=== PATIENT | male | born 1935 | race Caucasian/White ===

== ENCOUNTER → 2017-02-02 | Outpatient (CLI) | payer MEDICARE, BC ==
[~2017-02-02] MED LIST: AMIODARONE HCL100 MG PO; AMLODIPINE BESY10 MG PO; AMLODIPINE BESYL5 MG PO; ASPIRIN EC81 M1 PO; BAYER CHEWABLE81 MG PO; COREG3.125 MG PO; COREG6.25 M1 PO; COUMADIN5 MG PO; CRESTOR10 MG PO; CYMBALTA30 MG PO; FINASTERIDE5 M1 PO; FLOMAX0.4 M1 DOB; HCTZ PO; HYDROCHLORIC A500 M1; HYDROCHLOROTH12.5 M1 PO; IMDUR; LIPITOR20 MG PO; NEURONTIN100 MG PO; NORVASC10 MG PO; OMEPRAZOLE20 M2 PO; OMEPRAZOLE40 M1 PO; OXYCODON-ACETA1 EAC1 PO; PERCOCET 10/3251 TAB PO; PERCOCET10 PO; PROSCAR5 MG PO; RAPAFLO8 MG; REQUIP2 MG DOB; REQUIP2 MG PO; VITAMIN E100 UNI3 PO; WARFARIN SODIU7.5 M1 PO; ZETIA PO
[2017-02-02 12:18] LABS: BUN/CREATININE RATIO 16.66; CREATININE SERUM 0.9 mg/dL (0.6-1.4); GLOM FILT RATE Estimated 78.7 mL/min (>60); POTASSIUM 3.5 mmol/L (3.5-5.1)
== END | disposition home or self-care (01) ==
LOC: CLAB 11:09
PROVIDERS: Surgery Vascular Surgery
DX: I71.4 Abdominal aortic aneurysm, without rupture (principal); I71.2 Thoracic aortic aneurysm, without rupture; Z98.890 Other specified postprocedural states
CPT/HCPCS: 36415; 80048

== ENCOUNTER → 2017-02-09 | Outpatient (CLI) | payer MEDICARE, BC ==
--- NOTE | ~2017-02-09 | CT15 ---
[facility] A Service of [facility] RADIOLOGY TEXT RESULTS PATIENT: ONUR MCDOWELL LOCATION: CCAT : 33 UNIT #: [id number] AGE: [address]: Mayur Srinivasan MD SEX: M ORDER DR: [id number] [facility] [address] [place], [place] [address] [id number] O MR#: [id number] Acc #: [id number] NAME: ONUR MCDOWELL : 1935 SEX: M STUDY DATE/TIME: 02/09/2017 9:52 UNIT: CCAT ROOM: STUDY DESCRIPTION: CT Angio Chest Attending Physician: Mayur Srinivasan M.D. Referring Physician: Mayur Srinivasan M.D. Ordering Physician: Mayur Srinivasan M.D. Primary Care Physician: George Abdi M.D. MEDICAL IMAGING REPORT This report is preliminary unless electronic signature is present EXAM CT angiogram chest Please see CTA abdomen and pelvis for results. Dictated by... Nicole Montes M.D. THIS IS AN ELECTRONICALLY VERIFIED REPORT Nicole Montes M.D. at 02/09/2017 5:06 PM KESHA/juliano TD: 02/09/2017 15:52 JOB #: [id number] MEDICAL IMAGING REPORT Page 1 of 1 COPY
--- NOTE | ~2017-02-09 | CT14 ---
[facility] A Service of [facility] RADIOLOGY TEXT RESULTS PATIENT: ONUR MCDOWELL LOCATION: CCAT : 33 UNIT #: [id number] AGE: [address]: Mayur Srinivasan MD SEX: M ORDER DR: [id number] [facility] [address] [place], [place] [address] [id number] O MR#: [id number] Acc #: [id number] NAME: ONUR MCDOWELL : 1935 SEX: M STUDY DATE/TIME: 02/09/2017 9:52 UNIT: CCAT ROOM: STUDY DESCRIPTION: CT Angio Abdomen and Pelvis Attending Physician: Mayur Srinivasan M.D. Referring Physician: Mayur Srinivasan M.D. Ordering Physician: Mayur Srinivasan M.D. Primary Care Physician: George Abdi M.D. MEDICAL IMAGING REPORT This report is preliminary unless electronic signature is present EXAM CTA chest abdomen pelvis with IV contrast. DATE 02/09/2017 HISTORY 81-year-old male with history of thoracic aortic aneurysm, abdominal aortic aneurysm, endovascular repair of abdominal aortic aneurysm. Patient states mid abdominal pain for 4-5 months since the surgery. Additional history of hypertension. COMPARISON CT angiography of the abdomen and pelvis 09/27/2016. CTA chest abdomen and pelvis 07/26/2016. PROCEDURE 2 mm axial images from the thoracic inlet through the upper thighs after IV contrast administration in the arterial phase. 3-D reformatted images were obtained to the dedicated workstation. Additional noncontrast imaging was obtained through the stented segment of the abdominal aorta, and 90-second delayed postcontrast imaging was obtained through the stented segment, as well. This CT exam was performed with one or more of the following radiation dose reduction techniques: automatic control, adjustment of mA and/or kV according to patient size, and iterative reconstruction. FINDINGS ARTERIAL ANATOMY: There is mild ectasia of the aortic root of the sinuses of Valsalva, little change from 3.7 cm on the previous study, measured in the coronal plane. The mid ascending thoracic aorta is mildly aneurysmal measuring up to 4.0 cm, compared to 4.1 cm previously. The proximal [facility] A Service of [facility] & [facility] RADIOLOGY TEXT RESULTS PATIENT: ONUR MCDOWELL LOCATION: CCAT : 33 UNIT #: [id number] AGE: [address]: Mayur Srinivasan MD SEX: M ORDER DR: descending thoracic aorta is aneurysmal up to 3.2 cm compared to 3.1 cm previously. There is saccular aneurysm projecting from the left lateral margin of the proximal to mid descending thoracic aorta which, when measured in a comparable leveling plane, is unchanged as is the prior study, 5.2 cm transverse by 3.4 cm AP by 3.3 cm craniocaudal, with mild eccentric mural thrombus. There is mild irregular plaquing within the posterior mid to distal descending thoracic aorta. The distal abdominal aorta above the diaphragm is tortuous. The great arteries branch in a conventional pattern from the aorta with mild atherosclerotic disease at their origins but no flow-limiting stenosis. There are signs of aortobiiliac Endostent repair of infrarenal abdominal aortic aneurysm, which also traverses bilateral common iliac artery aneurysms. The Endostent begins below the takeoff of the left renal artery, and single bilateral renal arteries are patent. SMA and celiac artery remain patent, as well. There is no evidence of in-stent thrombus. The endosac has diminished in size, currently measuring 6.5 x 6.9 cm compared to 7.0 x 6.6 cm on 09/27/2016. There is no indication of endoleak. The endosac of the right common iliac artery aneurysm is thrombosed without evidence of endoleak. The endosac has diminished in size, currently measuring 4.2 cm compared to 4.6 cm previously. The left common iliac artery endosac is stable at 2.5 cm. No evidence of in-stent thrombus. Irregular ulcerative type plaque within the left external iliac artery, and focal ulcerative plaque versus chronic dissection in the right common femoral artery are each unchanged. No high-grade or flow-limiting stenosis is seen within the continuing external iliac, common femoral arteries or imaged superficial femoral arteries. ADDITIONAL CHEST FINDINGS: Coronary artery calcifications are present. Heart size is within normal limits. Moderate esophageal hiatal hernia is redemonstrated. Emphysematous changes are present, with features of interstitial fibrosis seen predominately in the right middle and right lower lobes. No pathologic adenopathy. No pericardial effusion or pleural effusion or pneumothorax. ADDITIONAL ABDOMEN FINDINGS: The gallbladder, liver, spleen, pancreas, adrenals are within normal limits. There is mild bilateral renal cortical scarring. Low-density right renal lesions are nonspecific but favored to represent cysts. Presumed sebaceous cyst in the midline of the back near the L1-2 level measures 2.3 cm, unchanged. Unopacified bowel is grossly within normal limits. PELVIS FINDINGS: 3.5 cm dense calcification within the urinary bladder [facility] A Service of [facility] RADIOLOGY TEXT RESULTS PATIENT: ONUR MCDOWELL LOCATION: [facility] : 33 UNIT #: [id number] AGE: [address]: Mayur Srinivasan MD SEX: M ORDER DR: lumen unchanged. No active urinary bladder inflammatory change. There is prostatic gland enlargement protruding to the base of the urinary bladder. Rectum is within normal limits. There is a lower thoracic levoscoliosis and upper lumbar dextroscoliosis. 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 No acute osseous abnormalities are identified. IMPRESSION 1. Aortobiiliac endograft repair of abdominal aortic aneurysm and bilateral common iliac artery aneurysms as described above. The stent remains patent and in satisfactory position, and there is no evidence of endoleak. The abdominal aortic endosac and the right common iliac artery endosac have diminished in size while the left common artery endosac is stable. 2. Ulcerative plaque in the left external iliac artery, and ulcerative plaque versus chronic focal dissection of the right common femoral artery each appear unchanged. 3. The celiac artery and SMA remain patent. 4. Saccular aneurysm of the proximal to mid descending thoracic aorta is stable when measured in a comparable plane and fashion, maximal 5.2 x 3.7 cm in the axial plane. No thoracic aortic dissection. 5. Stable aneurysmal dilation of the ascending and descending thoracic aorta as described in the report. Stable ectasia of the aortic root. 6. Emphysema with asymmetric interstitial fibrotic changes in the right middle and right lower lobes. 7. Moderate esophageal hiatal hernia. 8. 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 Dictated by... Nicole Montes M.D. THIS IS AN ELECTRONICALLY VERIFIED REPORT Nicole Montes M.D. at 02/09/2017 5:07 PM KESHA/juliano TD: 02/09/2017 15:59 JOB #: [id number] MEDICAL IMAGING REPORT Page 1 of 1 COPY
== END | disposition home or self-care (01) ==
LOC: CCAT 09:01
DX: I71.4 Abdominal aortic aneurysm, without rupture (principal); I71.2 Thoracic aortic aneurysm, without rupture; I72.3 Aneurysm of iliac artery; I70.8 Atherosclerosis of other arteries; I77.819 Aortic ectasia, unspecified site; J43.9 Emphysema, unspecified; K44.9 Diaphragmatic hernia without obstruction or gangrene; M43.16 Spondylolisthesis, lumbar region; M47.816 Spondylosis without myelopathy or radiculopathy, lumbar region
CPT/HCPCS: 71275; 74174; Q9967

== ENCOUNTER 2017-05-14 16:37 | Observation (INO) | payer MEDICARE, BC ==
[~2017-05-14] VITALS: Ht 172.7 cm; Wt 86.2 kg
--- NOTE | ~2017-05-14 | HP ---
Unit #: [id number] #: [id number] Patient: ONUR HERNANDEZ [id number] [facility] [address] [place], [place] [address] [id number] I MR#: [id number] NAME: ONUR HERNANDEZ ROOM: 554 Age: 81 Sex: M Admission Date: 05/15/2017 : 1935 Attending Physician: Drake Lilly M.D. Primary Care Physician: George Abdi M.D. HISTORY AND PHYSICAL HISTORY OF PRESENT ILLNESS This is an 81-year-old white male who is known to Dr. Lilly who has a history of paroxysmal atrial fibrillation, coronary artery disease. His last cath was last July. He does have an RCA that is occluded but has filling with collaterals. Also, a second marginal branch of the circumflex is occluded, also with collaterals. He, again, has history of paroxysmal atrial fibrillation. He has been on Coumadin. He has history of abdominal aortic repairs in the past, and he does currently have a 5.2 cm thoracic aortic aneurysm, and he is being followed by Dr. Srinivsaan. He also has history of hypertension, hyperlipidemia, EF of 55%. The patient came in for some left anterior chest pain. According to the patient, he last saw Dr. Lilly this past February. He was doing fairly well. He says he is arranging things to have his aneurysm repaired. They are talking about an endovascular repair. He said he has been compliant with his medication, but sometimes he forgets to take his Coumadin. He said he may have forgotten to take it the last couple days. His INR is 1.1. The patient says he had not been having any chest pain, and he got up yesterday morning and was feeling fine. He said, then later, he was sitting at the kitchen table drinking some coffee and he had some pain under his left axillary region. He denies any radiation of the pain up into his neck, bilateral jaws, shoulders, arms or elbows. He said it was more like a stabbing, pushing pressure. He may have had a little shortness of breath at the time. He said it was waxing and waning. He denies any diaphoresis. No dizziness. No nausea, vomiting or diarrhea. No abdominal pain. He denies any recent illness. No recent cough, fever or chills. He was concerned, with knowing his history of coronary artery disease. He came to the emergency room for further evaluation. He did have Nitrostat, but he said he did not take any. In the emergency room the patient's blood pressure was 139/78, heart rate 63, respirations 16, temperature 97.9, O2 sats 97% on room air. His initial cardiac enzymes were negative. EKG shows normal sinus rhythm, some T wave inversion in the inferior leads; otherwise, unremarkable. The patient was given aspirin 325. He will be admitted for further evaluation and management. PAST MEDICAL HISTORY 1. Cardiac cath 07/2016 revealed RCA was occluded in the mid segment with distal vessel filled with collaterals; left main normal; LAD 60% to 70% mid stenosis; circumflex - the trunk was normal with the second marginal branch occluded at the origin with distal vessel filled by collaterals. Unit #: [id number] #: [id number] Patient: ONUR HERNANDEZ 2. In 07/2016, two-D echo: LVEF 55%; mild aortic regurgitation. 3. History of abdominal aortic aneurysm repairs. He currently has a 5.2 cm thoracic aortic aneurysm, and he is following with Dr. Srinivasan. 4. History of paroxysmal atrial fibrillation. Has been on Coumadin. 5. Hypertension. 6. Hyperlipidemia. 7. History of carotid bruits. 8. Gastroesophageal reflux disease. 9. Osteoarthritis. 10. Reformed smoker. PAST SURGICAL HISTORY 1. Abdominal aortic aneurysm repair in the past, most recent was July 2016. 2. He had an EVAR 08/19/[address] Srinivasan. 3. Tonsillectomy. HOME MEDICATIONS 1. Percocet 10/325 mg 1 tablet p.o. q.8 hours p.r.n. 2. Oxycodone/acetaminophen 7.5/325 mg 1 tablet p.o. p.r.n. 3. Cymbalta 30 mg p.o. daily. 4. Coumadin 5 mg p.o. daily. 5. Amlodipine 10 mg p.o. daily. 6. Finasteride 5 mg p.o. daily. 7. Hydrochlorothiazide 12.5 mg p.o. daily. 8. Zetia 10 mg p.o. daily. 9. Crestor 20 mg p.o. daily. 10. Amiodarone 100 mg p.o. daily. 11. Omeprazole 20 mg p.o. b.i.d. 12. Flomax 0.4 mg p.o. b.i.d. 13. Requip 2 mg p.o. t.i.d. ALLERGIES No known drug allergies. SOCIAL HISTORY The patient lives with his daughter. He says he does some chores around the home. He rides a lawnmower outside for yard work. He quit smoking about 10 years ago. No alcohol or illicit drug abuse. FAMILY HISTORY His mother had a heart attack at the age of 73. His father from COPD. He has an older brother who has had a CABG. REVIEW OF SYSTEMS CONSTITUTIONAL: Denies fevers or chills. No recent weight gain, weight loss. HEENT: Denies headache or dizziness. No visual or hearing changes. No lymphadenopathy, thyromegaly. No difficulty swallowing. CARDIOVASCULAR: Chest pain present. Denies palpitations. Denies increased lower extremity edema. PULMONARY: Some slight shortness of breath with the chest pain; otherwise, none. Denies paroxysmal nocturnal dyspnea or orthopnea. GI: Denies nausea, vomiting, diarrhea or abdominal pain. NEUROLOGIC: No focal weakness. PHYSICAL EXAMINATION GENERAL: On exam, Mr. Hernandez is an 81-year-old white male in no acute Unit #: [id number] #: [id number] Patient: ONUR HERNANDEZ respiratory distress. He is awake, alert and oriented. VITAL SIGNS: Blood pressure is 125/80, respirations 18, heart rate 66, temperature 98.8, O2 sats 93% on room air. NECK: Trachea midline. No thyromegaly or lymphadenopathy. Normal carotid upstrokes. No jugular venous distention. HEART: S1, S2, regular rate and rhythm. No clicks, murmurs, or rubs. LUNGS: Slightly diminished; otherwise, clear. ABDOMEN: Obese, soft, nontender. EXTREMITIES: Pedal pulses are palpable. No pedal edema. DIAGNOSTIC STUDIES LABORATORY DIAGNOSTIC DATA: Glucose is 111, BUN 16, creatinine 0.8, eGFR 82.6, sodium 139, potassium 3.8, chloride 102, CO2 30, calcium 9.1, total protein 8, albumin 4.4, bili total 0.9, AST 19, ALT 14, alkaline phosphatase 71. WBC is 7.3, hemoglobin 12.7, hematocrit 38, platelets 162. Initial cardiac enzymes - CK-MB 3.4, troponin less than 0.05; CK-MB less than 1, troponin less than 0.05. ProTime is 11.4, INR 1.1. IMAGING: Chest x-ray shows a small amount of left bibasilar atelectasis, mild cardiomegaly and aortic atherosclerotic changes. No dense consolidation. Mild diffuse prominence may reflect chronic interstitial disease. CT of the chest with PE protocol shows nothing acute. No evidence of PE. Diffuse lung disease with mild emphysema and basilar fibrosis and small to moderate sized hiatal hernia and degenerative disk disease in the thoracic spine. CARDIOVASCULAR: EKG shows normal sinus rhythm with a first-degree AV block, left axis deviation, T wave inversion in lead III only, slow R wave progression. IMPRESSION 1. Chest pain. History of coronary artery disease. See details in HPI on the last cath 07/2016. 2. Thoracic aortic aneurysm, 5.[address] Srinivasan with history of abdominal aortic aneurysm repair in the past. 3. Paroxysmal atrial fibrillation, is on Coumadin. Subtherapeutic INR. 4. Hypertension. 5. Hyperlipidemia. 6. Gastroesophageal reflux disease. 7. Osteoarthritis. 8. Left ventricular ejection fraction of 55% with mild aortic regurgitation on two-D echocardiogram 07/2016. 9. Reformed smoker. PLAN Continue to monitor cardiac enzymes and EKGs. So far are negative. His EKG does not show anything acute. The patient's symptoms are somewhat atypical; however, with his coronary artery disease and other co-morbidities, will continue to monitor. If they remain negative, will treat with maximum medical management. Will start the patient on Imdur 30 mg p.o. daily, sustained-release nitrate. Will continue on his carvedilol and aspirin, amlodipine and Crestor and Zetia. The patient is also on amiodarone, besides beta-glory, to maintain normal sinus rhythm. Obtain a fasting lipid profile and evaluate. On exam, there are no signs or symptoms of acute congestive heart failure. We will get fasting lipid profile and TSH and evaluate. Further recommendations pending per Unit #: [id number] #: [id number] Patient: ONUR HERNANDEZ. If the cardiac enzymes remain negative, the patient would rather hold off on any further cardiac workup. He does not really want a heart catheterization at all at this time, and he said he would consider a stress test. Will make further recommendations before discharge, and/or he can have a stress test later on as an outpatient. The patient is subtherapeutic on his INR. Will give him an additional dose of his Coumadin 5 mg. Will give 10 mg dose today and then discharge home on his previous dose with a ProTime and INR with Dr. Lilly in about a week. While the patient is in the hospital, will have the resident caregiver to evaluate the cost of the newer anticoagulants per the patient's request and will make a final decision on his anticoagulation before discharge. Encourage the patient compliancy with his medications, especially his anticoagulation. Dictated by Yanelis Ramey A.P.R.N. for Clay Jason/herman TD: 05/15/2017 15:29 JOB #: [id number] HISTORY AND PHYSICAL Page 1 of 1 X Yanelis Ramey APRN HISTORY AND PHYSICAL
--- NOTE | ~2017-05-14 | EKG ---
PATIENT: ONUR MCDOWELL UNIT #: [id number] Ventricular Rate: 67 BPM Atrial Rate: 67 BPM P-R Interval: 234 ms QRS Duration: 80 ms Q-T Interval: 426 ms QTC Calculation(Bezet): 450 ms P [place]: 63 degrees Calculated R [place]: -45 degrees Calculated T [place]: 13 degrees Diagnosis Line: Sinus rhythm with 1st degree A-V block Diagnosis Line: Left axis deviation Diagnosis Line: Inferior infarct (cited on or before 08-AUG-2016) Diagnosis Line: Abnormal ECG Diagnosis Line: When compared with ECG of 08-AUG-2016 10:28, Diagnosis Line: Premature atrial complexes are no longer Present Diagnosis Line: Confirmed by SMOOTH FRIEND MD ([id number]) on Diagnosis Line: 05/14/2017 11:17:56 PM INTERPRETING MD: RONNA WILSON
--- NOTE | ~2017-05-14 | CT16 ---
[facility] A Service of [facility] RADIOLOGY TEXT RESULTS PATIENT: ONUR MCDOWELL LOCATION: [facility] 554 : 33 UNIT #: [id number] AGE: [address]: Drake Lilly MD SEX: M ORDER DR: [id number] [facility] [address] [place], [place] [address] [id number] I MR#: [id number] #: [id number] NAME: ONUR MCDOWELL : 1935 SEX: M STUDY DATE/TIME: 05/14/2017 20:05 UNIT: [facility] ROOM: [facility] STUDY DESCRIPTION: CT Angio Chest for PE Attending Physician: Drake Lilly M.D. Ordering Physician: Alma Alcantara M.D. Primary Care Physician: George Abdi M.D. MEDICAL IMAGING REPORT This report is preliminary unless electronic signature is present EXAM CT chest PE protocol. HISTORY 81-year-old male, pleuritic chest pain left lower side chest and rib pain starting this morning, pressure and tightness. The CT exam was performed with one or more of the following radiation dose reduction techniques: automatic exposure control, adjustment of mA and/or kV according to patient size, and iterative reconstruction. FINDINGS Axial images performed through the chest following IV contrast. 3-D sagittal and coronal reconstructed images were reviewed. No acute airspace disease. Mild emphysema and basilar fibrosis. Lung cyst noted in the right middle lobe. No effusions. Mild tracheobronchomegaly. No evidence of pulmonary embolus. Mild aortic atherosclerotic changes. Extensive coronary artery calcifications. Heart size within normal limits. Small to moderate sized hiatal hernia. Upper abdomen appears normal. Osseous structures remarkable for moderately advanced multilevel degenerative disc disease. IM IMPRESSION 1. No acute intrathoracic abnormality identified. 2. No evidence of pulmonary embolus. 3. Diffuse lung disease with mild emphysema and basilar fibrosis. 4. Small to moderate sized hiatal hernia. [facility] A Service [facility] RADIOLOGY TEXT RESULTS PATIENT: ONUR MCDOWELL LOCATION: [facility] : 33 UNIT #: [id number] AGE: [address]: Drake Lilly MD SEX: M ORDER DR: 5. Moderately advanced multilevel degenerative disc disease thoracic spine. Dictated by... Andrew Hanley M.D. THIS IS AN ELECTRONICALLY VERIFIED REPORT Andrew Hanley M.D. at 05/15/2017 5:38 PM SHONNA/shelly TD: 05/15/2017 08:47 JOB #: [id number] MEDICAL IMAGING REPORT Page 1 of 1 COPY
--- NOTE | ~2017-05-14 | A ---
[facility] Nutrition Therapy DATE: 05/15/17 Patient: ONUR MCDOWELL Physician: DANIELA Address: [address] [place] [address] Room/Bed: [address] [place] [address], [facility], Zip: [place] [address] Admit Date: 05/15/17 Date of : [birth year] Height: 5 8 Weight: 190 86.18 NUTRITIONAL ASSESSMENT: REASON: VERBAL CONSULT FROM CALL CENTER RE: HEALTHY HEART DIET EDUCATION PT IS 81 Y.O. MALE ADMITTED FOR CHEST PAIN HT: 5'8", WT: 190# (86 KG), BMI: 28.9 RD PROVIDED WRITTEN AND VERBAL HEART HEALTHY DIET EDUCATION. RD PROVIDED LIST OF FOODS TO AVOID/LIMIT AND FOODS TO EAT MORE OFTEN. RD ENCOURAGED HEALTHY CHOICES ON [facility] AND PROVIDED ASSISTANCE TO PT WITH ORDERING DINNER MEAL FOR TONIGHT. PT DEMONSTRATED UNDERSTANDING OF THE TOPIC. PT REPORTED NO DIET QUESTIONS. RD LEFT BUSINESS CARD AT BEDSIDE FOR ANY ADDITIONAL QUESTIONS. RD TO REMAIN AVAILABLE. RECOMMENDATIONS: 1. ENCOURAGE COMPLIANCE OF HEART HEALTHY DIET 2. CONSULT RD IF FURTHER DIET EDUCATION REQUESTED RD WILL F/U PER HANNAH Respectfully, LINO PENALOZA MS, RD, LD [facility] cc: client file
--- NOTE | ~2017-05-14 | CR72 ---
[facility] A Service of [facility] RADIOLOGY TEXT RESULTS PATIENT: ONUR MCDOWELL LOCATION: [facility] [address]-30 : 33 UNIT #: [id number] AGE: [address]: Drake Lilly MD SEX: M ORDER DR: [id number] [facility] [address] [place], [place] [address] [id number] I MR#: [id number] Acc #: [id number] NAME: ONUR MCDOWELL : 1935 SEX: M STUDY DATE/TIME: 05/14/2017 17:23 UNIT: [facility] ROOM: [id number] STUDY DESCRIPTION: CR Chest Single View Portable Attending Physician: Drake Lilly M.D. Ordering Physician: Ed Doctor [id number] [facility] Primary Care Physician: George Abdi M.D. MEDICAL IMAGING REPORT This report is preliminary unless electronic signature is present EXAM Portable chest HISTORY Chest pain left-sided onset this morning. Chronic smoker. COMPARISON 08/22/2016. FINDINGS Portable view of the chest demonstrates a small amount of left basilar atelectasis. Mild cardiomegaly and aortic atherosclerotic changes. No sizeable effusions. No dense consolidation, effusion or pneumothorax. Osseous structures unremarkable. Mild diffuse reticulonodular prominence may reflect chronic interstitial disease. Dictated by... Andrew Hanley M.D. THIS IS AN ELECTRONICALLY VERIFIED REPORT Andrew Hanley M.D. at 05/15/2017 7:16 AM SHONNA/frankie TD: 05/15/2017 06:28 JOB #: [id number] MEDICAL IMAGING REPORT Page 1 of 1 COPY
--- NOTE | ~2017-05-14 | DS ---
Unit #: [id number] #: [id number] Patient: ONUR MCDOWELL [id number] [facility]. [place], [place] [address] [id number] MR#: [id number] NAME: ONUR MCDOWELL ROOM: 4 Age: Sex: M Admission Date: 05/15/2017 : 1935 Discharge Date: 05/16/2017 Attending Physician: Drake Lilly M.D. Primary Care Physician: George Abdi M.D. DISCHARGE SUMMARY SHORT-STAY SUMMARY ADDENDUM The patient was admitted with chest pain and was ruled out for an acute myocardial infarction. He had negative cardiac enzymes and troponin. He was hypotensive this admission where his blood pressure was as low as 85/41 mmHg. He was started on carvedilol 6.25 mg b.i.d. that was decreased to 3.125 mg b.i.d. Imdur was decreased to 20 mg daily. He has known paroxysmal atrial fibrillation and the cost of Xarelto for the patient was $45. His INR was subtherapeutic on admission and has been inconsistent with taking his medication. The patient was unable to afford any additional pharmacy cost at this time. He wants to continue on Coumadin. He was to take 7.5 mg of Coumadin today in the a.m. and start on his daily regimen of 5 mg daily. He will need a ProTime with INR in our office in one week. Follow up with Dr. Lilly on June 29 at 2:15 p.m. Follow up with his primary care physician in one week. His blood pressure did improve on discharge to 94/52 mmHg. He was ambulated in the hallway with the nursing staff without any difficulty. He is stable for discharge today. Dictated by... Isabelle WilsonPLinoRLinoNLino for Clay Ley/shay TD: 05/16/2017 18:36 JOB #: [id number] DISCHARGE SUMMARY Page 1 of 1 X Librado Olguin APRN X DISCHARGE SUMMARY
--- NOTE | ~2017-05-14 | EKG ---
PATIENT: ONUR MCDOWELL UNIT #: [id number] Ventricular Rate: 65 BPM Atrial Rate: 65 BPM P-R Interval: 238 ms QRS Duration: 94 ms Q-T Interval: 444 ms QTC Calculation(Bezet): 461 ms P Forest: 18 degrees Calculated R Forest: -42 degrees Calculated T Forest: 9 degrees Diagnosis Line: Sinus rhythm with 1st degree A-V block Diagnosis Line: Left axis deviation Diagnosis Line: Consider prior inferior infarct Diagnosis Line: Abnormal ECG Diagnosis Line: When compared with ECG of 14-MAY-2017 16:43, Diagnosis Line: No significant change was found Diagnosis Line: Confirmed by GINO MONDRAGON MD ([id number]) on Diagnosis Line: 05/15/2017 8:28:57 PM INTERPRETING MD: [email or web address]
[~2017-05-14 16:37] MED LIST changes: -AMIODARONE HCL100 MG PO; -AMLODIPINE BESY10 MG PO; -AMLODIPINE BESYL5 MG PO; -BAYER CHEWABLE81 MG PO; -COREG3.125 MG PO; -COUMADIN5 MG PO; -CRESTOR10 MG PO; -CYMBALTA30 MG PO; -FINASTERIDE5 M1 PO; -FLOMAX0.4 M1 DOB; -HYDROCHLOROTH12.5 M1 PO; -IMDUR; -OMEPRAZOLE20 M2 PO; -OXYCODON-ACETA1 EAC1 PO; -PERCOCET10 PO; -REQUIP2 MG DOB; -WARFARIN SODIU7.5 M1 PO; -ZETIA PO
[2017-05-14 18:16] LABS: POC - CKMB 3.4 ng/mL (0.0-7.9); POC - TROPONIN <0.05 ng/mL (<=0.05)
[2017-05-14 18:22] LABS: BASOPHIL% 0.3 % (0-2.5); EOSINOPHIL# 0.1 X10e3 (0-0.7); EOSINOPHIL% 0.5 % (0.0-7.0); HEMATOCRIT 40.1 % (38.0-50.0); HEMOGLOBIN 13.3 gm/dL (13.0-16.0); LYMPHOCYTE# 1.2 X10e3 (1.0-3.5); LYMPHOCYTE% 11.2 % (17.0-45.0); MEAN CELL VOLUME 84.7 FL (83-96); MEAN CORPUSCULAR HEMOGLOBIN 28.2 PG (28-34); MEAN CORPUSCULAR HGB CONC 33.3 g/dL (30-36); MONOCYTE# 0.9 X10e3 (0-1.0); MONOCYTE% 8.6 % (3.0-12.0); NEUTROPHIL# 8.7 X10e3 (1.5-7.1); NEUTROPHIL% 79.4 % (40-75); PLATELET COUNT 163 X10e3 (140-420); RED BLOOD COUNT 4.73 X10e (3.90-5.60); RED CELL DISTRIBUTION WIDTH 13.7 % (11.0-15.5); WHITE BLOOD COUNT 10.9 X10e3 (4.0-10.5)
[2017-05-14 18:27] LABS: DIFF IND NO
[2017-05-14 18:38] LABS: INR 1.1; PROTHROMBIN TIME (PATIENT) 11.4 SECONDS (10.0-11.7)
[2017-05-14 18:44] LABS: ALBUMIN SERUM 4.4 g/dL (3.5-5.0); BILIRUBIN, DIRECT 0.2 mg/dL (0.0-0.2); BILIRUBIN,INDIRECT 0.7 mg/dL (0.0-0.9); BILIRUBIN,TOTAL 0.9 mg/dL (0.2-2.0); BUN/CREATININE RATIO 21.11; CALCIUM SERUM 9.2 mg/dL (8.4-10.2); CREATININE SERUM 0.9 mg/dL (0.6-1.4); GLOM FILT RATE Estimated 78.7 mL/min (>60); POTASSIUM 3.6 mmol/L (3.5-5.1)
[2017-05-14 21:40] LABS: POC - CKMB <1.0 ng/mL (0.0-7.9); POC - TROPONIN <0.05 ng/mL (<=0.05)
[2017-05-14] MEDS ORDERED: PERCOCET10 PO (22:08)
[2017-05-14] MEDS ORDERED: CYMBALTA30 MG PO (22:09)
[2017-05-14] MEDS ORDERED: OXYCODON-ACETA1 EAC1 PO (22:09)
[2017-05-14] MEDS ORDERED: COUMADIN5 MG PO (22:11)
[2017-05-14] MEDS ORDERED: FINASTERIDE5 M1 PO (22:12)
[2017-05-14] MEDS ORDERED: HYDROCHLOROTH12.5 M1 PO (22:12)
[2017-05-14] MEDS ORDERED: AMLODIPINE BESY10 MG PO (22:12)
[2017-05-14] MEDS ORDERED: CRESTOR10 MG PO (22:13)
[2017-05-14] MEDS ORDERED: ZETIA PO (22:13)
[2017-05-14] MEDS ORDERED: OMEPRAZOLE20 M2 PO (22:14)
[2017-05-14] MEDS ORDERED: AMIODARONE HCL100 MG PO (22:14)
[2017-05-14] MEDS ORDERED: FLOMAX0.4 M1 DOB (22:15)
[2017-05-14] MEDS ORDERED: REQUIP2 MG DOB (22:16)
[2017-05-15 09:18] LABS: HEMOGLOBIN 12.7 gm/dL (13.0-16.0); MEAN CELL VOLUME 84.7 FL (83-96); MEAN CORPUSCULAR HEMOGLOBIN 28.3 PG (28-34); MEAN CORPUSCULAR HGB CONC 33.4 g/dL (30-36); MEAN PLATELET VOLUME 7.2 FL (6.5-11.5); RED BLOOD COUNT 4.48 X10e (3.90-5.60); RED CELL DISTRIBUTION WIDTH 13.4 % (11.0-15.5); WHITE BLOOD COUNT 7.3 X10e3 (4.0-10.5)
[2017-05-15 09:57] LABS: CALCIUM SERUM 9.1 mg/dL (8.4-10.2); CREATININE SERUM 0.8 mg/dL (0.6-1.4); GLOM FILT RATE Estimated 82.6 mL/min (>60); POTASSIUM 3.8 mmol/L (3.5-5.1)
[2017-05-15 10:36] LABS: %MB 2.2 % (0.0-4.0); MB 3.3 ng/ml
[2017-05-16 06:57] LABS: INR 1.1; PROTHROMBIN TIME (PATIENT) 12.3 SECONDS (10.0-11.7)
[2017-05-16] MEDS ORDERED: BAYER CHEWABLE81 MG PO (11:49)
[2017-05-16] MEDS ORDERED: AMLODIPINE BESYL5 MG PO (11:50)
[2017-05-16] MEDS ORDERED: COREG3.125 MG PO (11:53)
[2017-05-16] MEDS ORDERED: WARFARIN SODIU7.5 M1 PO (11:54)
[2017-05-16] MEDS ORDERED: IMDUR (11:55)
== END 2017-05-16 13:20 | disposition home or self-care (01) ==
LOC: CED 16:37 → CEDOF 05-15 01:29 → C5B 05-15 07:40 → CED 05-15 07:40 → C5B 05-15 08:00 → CEDOF 05-15 08:00 → C5B 05-16 13:20
PROVIDERS: Emergency Medicine; Internal Medicine Cardiovascular Disease
DX: R07.89 Other chest pain (principal); I71.2 Thoracic aortic aneurysm, without rupture; I48.0 Paroxysmal atrial fibrillation; Z79.01 Long term (current) use of anticoagulants; I25.10 Atherosclerotic heart disease of native coronary artery without angina pectoris; I35.1 Nonrheumatic aortic (valve) insufficiency; I31.3 Pericardial effusion (noninflammatory); I10 Essential (primary) hypertension; E78.5 Hyperlipidemia, unspecified; K21.9 Gastro-esophageal reflux disease without esophagitis; M19.90 Unspecified osteoarthritis, unspecified site; Z87.891 Personal history of nicotine dependence; J43.9 Emphysema, unspecified; K44.9 Diaphragmatic hernia without obstruction or gangrene; M51.34 Other intervertebral disc degeneration, thoracic region
CPT/HCPCS: 36415; 71010; 71275; 80048; 80061; 80076; 82550; 82553; 84484; 85025; 85027; 85610; 85730; 93005; 99285; G0378; J1650; Q9967